=== PATIENT | female | born 1970 | race Caucasian/White ===

== ENCOUNTER 2017-06-21 23:41 | Emergency (ER) | payer MEDICARE, OTHER ==
[2017-06-22 00:06] VITALS: BP 107/49
--- NOTE | 2017-06-22 00:10 | ED Physician Documentation ---
General Adult - HISTORIAN Historian: patient, other (her regular caregiver) - HPI Stated Complaint: Dizziness and slurred speech Chief Complaint: General Adult Additional Information: Leaning to one side. This is not new, but seems to be a bit more pronounced. Her speech is said to be unchanged from her baseline. Began benztropine, 0.5 mg bid yesterday and has had 3 doses. Resident of the [facility] with Bipolar Disease, Articulation disorder, S/P repair Tetralogy of Fallot. On many psych altering/modifying meds. Symptom noted this afternoon. Caregiver thought left ankle might be a little swollen; she notes no other new symptoms. - ROS CONST: no problems - PAST HX Past History: other (see above) Allergies/Adverse Reactions: Allergies Allergy/AdvReac Type Severity Reaction Status Date / Time codeine Allergy Verified 06/21/17 23:51 Penicillins Allergy Verified 06/21/17 23:51 - SOCIAL HX Smoking History: non-smoker - FAMILY HX Family History: No - VITAL SIGNS Vital Signs: Vital Signs Temp Pulse Resp BP Pulse Ox 107/49 98 06/21/17 23:41 06/21/17 23:41 - REVIEWED ASSESSMENTS Nursing Assessment Reviewed: Yes Vitals Reviewed: Yes General Adult Physical Exam - PHYSICAL EXAM GENERAL APPEARANCE: talkative, cooperative, pleasant EENT: ENT inspection normal, pharynx normal NECK: normal inspection, supple RESPIRATORY: no resp distress, breath sounds normal CVS: reg rate & rhythm ABDOMEN: soft, normal bowel sounds, non-tender BACK: no CVA tenderness, other (no vertebral tenderness, scoliosis) SKIN: warm/dry, normal color EXTREMITIES: non-tender, no evidence of injury, no edema NEURO: CN's nml as tested, motor nml, sensation nml Discharge Clincal Impression: Medication side effect Referrals: Roberto Hartley [Primary Care Provider] - 2 Days Additional Instructions: Ask your provider to evaluate your medications. Return to the ER as needed. Condition: Good Disposition: 01 HOME, SELF-CARE Decision to Admit: NO Decision Time: 00:20
== END 2017-06-22 00:25 | disposition home or self-care (01) ==
LOC: ED 23:41
DX: T50.905A Adverse effect of unspecified drugs, medicaments and biological substances, initial encounter (principal); X58.XXXA Exposure to other specified factors, initial encounter; Y93.9 Activity, unspecified; Y99.9 Unspecified external cause status
CPT/HCPCS: 99283

== ENCOUNTER 2018-04-03 13:22 | Outpatient (CLI) | payer OTHER | END 2018-04-03 13:40 | LOC: POD 13:22 | PROVIDERS: ATTEND Podiatrist | DX: B35.1 Tinea unguium (principal); M79.674 Pain in right toe(s); M79.675 Pain in left toe(s) | CPT/HCPCS: G0463 ==

== ENCOUNTER 2018-09-15 10:26 | Emergency (ER) | payer OTHER ==
[2018-09-15] MEDS ORDERED: 0.9 % SODIUM CHLORIDE 1,000 ML IV ONE (11:43)
--- NOTE | 2018-09-15 11:49 | ED Physician Documentation ---
Fall - HISTORIAN Historian: patient, other (caregiver) - HPI Stated Complaint: frequent falls Chief Complaint: Fall Onset: just prior to arrival, yesterday Where: other (shelter) Context: lost balance, other (pt has long hx falls which-accd to records-is attention getting device) r: moderate Associated Symptoms:: no loss of consciousness Location of Pain/Injury: chest (upper w/cough--saw pcp yesterday given decongestant) Injury to Right Extremity: none Injury to Left Extremity: none Further Comments: no - ROS CONST: weakness NEURO: other (slight lethargic w/ slurred speech(long hx same)) MS/SKIN/LYMPH: denies: weakness, numbness, neck pain, back pain, ankle swelling, leg swelling EYES/ENT: none CVS/RESP: chest pain (upper central w/ respiration especially) GI/: denies: problems urinating, nausea, vomiting (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) - PAST HX Past History: other (mild mental retardation---falls---meds chg 1 week ago-) Allergies/Adverse Reactions: Allergies Allergy/AdvReac Type Severity Reaction Status Date / Time codeine Allergy Verified 09/15/18 10:44 Penicillins Allergy Verified 09/15/18 10:44 Home Medications: Ambulatory Orders Medication Instructions Recorded Acetaminophen [Tylenol Extra 500 mg PO Q4 PRN 06/22/17 Strength] Benztropine Mesylate [Cogentin] 0.5 mg PO BID 06/22/17 Carbamazepine [Carbatrol] 300 mg PO BID 06/22/17 Divalproex Sodium [Depakote ER] 750 mg PO BID 06/22/17 Fluticasone Propionate [Flon[place] 1 [place] [address]/22/17 Nasal [place]] Loratadine [Claritin] 10 mg PO 0800 06/22/17 Magnesium Hydroxide [Milk of 2,400 mg PO DAILY PRN 06/22/17 Magnesia] Sertraline HCl [Zoloft] 150 mg PO 0800 06/22/17 Ziprasidone HCl [Geodon] 40 mg PO BID 06/22/17 Zolpidem Tartrate [Ambien] 10 mg PO HS 06/22/17 clonazePAM [Klonopin] 0.5 mg PO BID 06/22/17 risperiDONE [RisperDAL] 1 mg PO BID 06/22/17 traZODone HCL [Desyrel] 300 mg PO HS 06/22/17 Clonazepam 2 mg PO HS 09/15/18 Ziprasidone HCl [Geodon] 40 mg PO BID 09/15/18 Zolpidem Tartrate [Ambien] 10 mg PO HS 09/15/18 - SOCIAL HX Smoking History: non-smoker Alcohol Use: none Drug Use: none - FAMILY HX Family History: no significant history - VITAL SIGNS Vital Signs: Vital Signs Temp Pulse Resp BP Pulse Ox 98.4 F 76 18 109/67 96 09/15/18 10:27 09/15/18 10:27 09/15/18 10:27 09/15/18 10:27 09/15/18 10:27 - REVIEWED ASSESSMENTS Nursing Assessment Reviewed: Yes Vitals Reviewed: Yes ED Results Lab/Radiology - Radiology Radiology Impressions: [facility] FALL PRECAUTIONS perhaps psyche eval - Orders Orders: ED Orders Category Date Time Status Place IV Lock 1T Care 09/15/18 10:45 Active CHEST 1VIEW [RAD] Stat Exams 09/15/18 11:10 Taken BNP [NT-proBNP] Stat Lab 09/15/18 Ordered CBC/PLATELET/DIFF Stat Lab 09/15/18 11:00 Received CMP Stat Lab 09/15/18 11:00 Received URINALYSIS Routine Lab 09/15/18 Ordered 0.9 % Sodium Chloride [Normal Saline] 1,000 ml Med 09/15/18 11:43 Discontinued IV .STK-MED Chem Sticks Med 09/15/18 10:45 Discontinued 1 each MC 1T ONE Fall Physical Exam - Physical Exam General Appearance: mild distress Head: non-tender, no swelling, no obvious injury. No: raccoon eyes, Navarrete's sign, trauma Neck: non-tender, painless ROM Eye: NANO, EOMI Resp/CVS: chest non-tender, no ecchymosis (long slow breaths coarse and fine rales rhonci), heart sounds nml Abdomen: soft, no distension, non-tender (slurred slow speech-laboratory animal caretaker says this not unusual) Neuro: oriented x3, sensation nml, motor nml, slurred speech, other (depressed). No: mood/affect nml Skin: color nml, no rash, ecchymosis. No: cyanosis, diaphoresis Back: No: CVA tenderness (R), CVA tenderness (L) Extremities: atraumatic, pelvis stable, hips non-tender, other (no pronator drift---can heel to knee to toe bilaterally) Joint: joints nml, nml ROM - [place] Coma Score Eyes Open: Spontaneous Speech: Oriented (slurredd speech lethargic as w/excess medication) Motor: Obeys Commands Discharge Clincal Impression: frequent falls, shelter reort af attentiongettingde, no appaarent sig injury Referrals: Venkat Verdugo [Primary Care Provider] - 2 Days Comments: perhaps psyche eval falkl lprecaution Condition: Fair Disposition: 04 XFER LONGTERM Decision to Admit: NO Decision Time: 22:00
--- NOTE | 2018-09-15 12:28 | Diagnostic Imaging Report ---
DANIA DEVINE [facility] [address] [facility] [address] [address] Report Submission Date: Sep 15, 2018 11:57:35 AM CURBING STONECUTTER Patient Study Name: LAMINE HERMOSILLO Date: Sep 15, 2018 11:19:14 AM CURBING STONECUTTER Modality Type: DX Gender: F Description: CHEST : 70 Institution: [facility] Physician: DANIA DEVINE HISTORY: 48-year-old female with chest pain for 2 days. COMPARISON: None available TECHNIQUE: Single portable AP view of the chest was performed. FINDINGS: There are postoperative changes of median sternotomy. There are hazy infiltrates in the right lung base, although this appearance is exaggerated by abundant overlying soft tissue. No pneumothorax or pulmonary edema. The heart is enlarged. There is probable right-sided aortic arch. The right humeral head is high-riding, consistent with significant rotator cuff tendinopathy. IMPRESSION: 1. Right basilar pneumonia. 2. Cardiomegaly and postoperative changes of the heart. 3. Probable right aortic arch. Electronically signed on Sep 15, 2018 11:57:35 AM CURBING STONECUTTER by: Tremaine DEL RIO
--- NOTE | 2018-09-15 12:50 | Diagnostic Imaging Report ---
DANIA DEVINE [facility] [address] [facility] [address] [address] Report Submission Date: Sep 15, 2018 11:57:35 AM BAG BAILER Patient Study Name: LAMINE HERMOSILLO Date: Sep 15, 2018 11:19:14 AM BAG BAILER Modality Type: DX Gender: F Description: CHEST : 70 Institution: [facility] Physician: DANIA DEVINE HISTORY: 48-year-old female with chest pain for 2 days. COMPARISON: None available TECHNIQUE: Single portable AP view of the chest was performed. FINDINGS: There are postoperative changes of median sternotomy. There are hazy infiltrates in the right lung base, although this appearance is exaggerated by abundant overlying soft tissue. No pneumothorax or pulmonary edema. The heart is enlarged. There is probable right-sided aortic arch. The right humeral head is high-riding, consistent with significant rotator cuff tendinopathy. IMPRESSION: 1. Right basilar pneumonia. 2. Cardiomegaly and postoperative changes of the heart. 3. Probable right aortic arch. Electronically signed on Sep 15, 2018 11:57:35 AM BAG BAILER by: Tremaine DEL RIO
[2018-09-15 13:58] VITALS: BP 119/63
[2018-09-15 22:52] LABS: MEAN CORPUSCULAR HEMOGLOBIN 28.4 pg (28.0-34.0); MONOCYTES % 9.2 % (0.0-11.0)
[2018-09-15 22:53] LABS: BASOPHILS % 0.3 (0.0-1.5); EOSINOPHILS % 0.8 % (0.0-6.8); NEUTROPHILS # 7.1 # k/uL (1.4-7.7); eGFR (Non-African) > 60
[2018-09-15 23:08] LABS: COLOR,URINE AMBER (YELLOW)
[2018-09-15 23:09] LABS: APPEARANCE,URINE CLOUDY (CLEAR); OCCULT BLOOD,URINE NEGATIVE (NEGATIVE)
== END 2018-09-15 13:50 ==
LOC: ED 10:26
DX: Z04.89 Encounter for examination and observation for other specified reasons (principal); R29.6 Repeated falls
CPT/HCPCS: 36415; 70450; 71045; 80053; 81002; 83880; 85025; 96365; 99283; 99285; J7030; S1016

== ENCOUNTER 2019-05-02 16:12 | Emergency (ER) | payer OTHER ==
--- NOTE | 2019-05-02 16:28 | ED Physician Documentation ---
Fall - HISTORIAN Historian: patient - HPI Stated Complaint: fall and she has pain in her right shoulder and elbwo Chief Complaint: Fall Onset: just prior to arrival Where: home Context: tripped, slipped r: mild Associated Symptoms:: no loss of consciousness Location of Pain/Injury: R shoulder, lower extremity Injury to Right Extremity: shoulder, elbow Injury to Left Extremity: foot Further Comments: yes (per caregiver she was told the pt fell and hit her right shoulder, head , elbow, and left foot. She states she had no LOC. She only complains of right shoulder pain and elbow and left foot. She has not had any meds for pain. No other complaints) - ROS CONST: no problems EYES/ENT: denies: problems with vision - PAST HX Past History: none Immunizations: UTD Allergies/Adverse Reactions: Allergies Allergy/AdvReac Type Severity Reaction Status Date / Time codeine Allergy Verified 05/02/19 16:21 Penicillins Allergy Verified 05/02/19 16:21 Home Medications: Ambulatory Orders Medication Instructions Recorded Acetaminophen [Mapap] 1 tbs PO Q4 PRN 05/02/19 Benztropine Mesylate [Cogentin] 0.5 tab PO BID PRN 05/02/19 Carbamazepine [Carbatrol] 1 tab PO BID 05/02/19 Carbamazepine [Carbatrol] 1 tab PO BID 05/02/19 Clonazepam [Klonopin] 1 tab PO HS 05/02/19 Divalproex Sodium [Depakote] 1 tab PO BID 05/02/19 Divalproex Sodium [Depakote] 1 tab PO BID 05/02/19 Fluticasone Propionate [Flonase] 2 spray INH DAILY 05/02/19 Furosemide [Lasix] 1 tab PO DAILY 05/02/19 Loratadine [Claritin] 1 tab PO DAILY 05/02/19 Medroxyprogesterone Acetate 1 ml IM Q3 05/02/19 [Depo-Provera] Risperidone [Risperdal] 1 tab PO TID 05/02/19 Sertraline HCl [Zoloft] 3 tab PO DAILY 05/02/19 Trazodone HCl [Desyrel] 2 tab PO HS 05/02/19 Ziprasidone HCl [Geodon] 1 tab PO BID 05/02/19 Zolpidem Tartrate [Ambien] 2 tab PO HS 05/02/19 clonazePAM [Klonopin] 1 tab PO BID PRN 05/02/19 - SOCIAL HX Smoking History: non-smoker Alcohol Use: none Drug Use: none - FAMILY HX Family History: none - VITAL SIGNS Vital Signs: Vital Signs Temp Pulse Resp BP Pulse Ox 119/63 09/15/18 13:50 - REVIEWED ASSESSMENTS Nursing Assessment Reviewed: Yes Vitals Reviewed: Yes Progress - Progress Progress: 1725: discussed results and plan she is agreeable DG ED Results Lab/Radiology - Radiology Radiology Impressions: SHOULDER 2 VIEWS OR MORE History: RT SHOULDER, PAIN IN RT SHOULDER AFTER FALL Findings: The osseous structures are intact without acute fracture. The joint space and alignment are normal. There is no soft tissue swelling. The imaged portion of the right hemithorax is normal. Impression: 1. No acute osseous abnormality. Electronically signed on May 02, 2019 5:14:12 PM CDT by: Adan Trejo ELBOW 3 VIEWS History: RT ELBOW, PAIN IN RT ELBOW AFTER FALL Findings: The osseous structures are intact without acute fracture. The joint space and alignment are normal. There is no soft tissue swelling. No elbow joint effusion. Impression: 1. No acute osseous abnormality. Electronically signed on May 02, 2019 5:14:41 PM CDT by: Adan Trejo FOOT 3 VIEWS OR MORE History: LEFT FOOT, PAIN IN LEFT FOOT AFTER FALL Findings: The osseous structures are intact without acute fracture. Mild hallux valgus deformity present. Otherwise, the joint space and alignment are normal. There is no soft tissue swelling. Impression: 1. No acute osseous abnormality. Electronically signed on May 02, 2019 5:15:35 PM CDT by: Adan Trejo Fall Physical Exam - Physical Exam General Appearance: no acute distress, alert Head: non-tender (small pinpoint abrasion on right forehead ), no swelling Neck: non-tender, painless ROM Eye: NANO ENT: nml external inspection Resp/CVS: chest non-tender, breath sounds nml, no resp. distress, heart sounds nml Abdomen: soft, normal bowel sounds, no distension, non-tender Rectal/Genital: nml ext.inspection Neuro: oriented x3 Skin: color nml, no rash, other (abrasion right elbow. Pain with palpation right shoulder. Pulses + FROM. Sensation + ) Extremities: atraumatic Joint: joints nml, nml ROM - [place]ovany Coma Score Eyes Open: Spontaneous Speech: Oriented Motor: Obeys Commands Discharge Clincal Impression: Fall Qualifiers: Encounter type: initial encounter Qualified Code(s): W19.XXXA - Unspecified fall, initial encounter Referrals: Mario Jimenez MD [Primary Care Provider] - 2 Days Comments: 1. Continue same meds 2. Follow up with PCP as needed in 2-4 days 3. OTC meds as directed as needed for pain 4. Ice to affected areas as needed for comfort 5. Return to ER for any increasing concerns Condition: Stable Disposition: 01 HOME, SELF-CARE Decision to Admit: NO Date of Decison to Admit: 05/02/19 Decision Time: 17:30
[2019-05-02 16:56] VITALS: BP 148/47
[2019-05-02] MEDS: IBUPROFEN 400 MG TABLET PO ONE (18:30)
--- NOTE | 2019-05-02 20:03 | Diagnostic Imaging Report ---
MARIBEL WOOD [facility] [address] [facility] [address] [place], [place]. [address] Report Submission Date: May 02, 2019 5:14:12 PM CDT Patient Study Name: LAMINE HERMOSILLO Date: May 02, 2019 4:33:15 PM CDT Modality Type: DX Gender: F Description: SHOULDER 2 VIEWS OR MORE : 70 Institution: [facility] Physician: MARIBEL WOOD SHOULDER 2 VIEWS OR MORE History: RT SHOULDER, PAIN IN RT SHOULDER AFTER FALL Findings: The osseous structures are intact without acute fracture. The joint space and alignment are normal. There is no soft tissue swelling. The imaged portion of the right hemithorax is normal. Impression: 1. No acute osseous abnormality. Electronically signed on May 02, 2019 5:14:12 PM CDT by: Adan DEL RIO
--- NOTE | 2019-05-02 20:04 | Diagnostic Imaging Report ---
MARIBEL WOOD [facility] [address] [facility] [address] [place], [place]. [address] Report Submission Date: May 02, 2019 5:14:41 PM CDT Patient Study Name: LAMINE HERMOSILLO Date: May 02, 2019 4:33:15 PM CDT Modality Type: DX Gender: F Description: ELBOW 3 VIEWS : 70 Institution: [facility] Physician: MARIBEL WOOD ELBOW 3 VIEWS History: RT ELBOW, PAIN IN RT ELBOW AFTER FALL Findings: The osseous structures are intact without acute fracture. The joint space and alignment are normal. There is no soft tissue swelling. No elbow joint effusion. Impression: 1. No acute osseous abnormality. Electronically signed on May 02, 2019 5:14:41 PM CDT by: Adan DEL RIO
--- NOTE | 2019-05-02 20:05 | Diagnostic Imaging Report ---
MARIBEL WOOD [facility] [address] [facility] [address] [place], [place]. [address] Report Submission Date: May 02, 2019 5:15:35 PM CDT Patient Study Name: LAMINE HERMOSILLO Date: May 02, 2019 4:33:15 PM CDT Modality Type: DX Gender: F Description: FOOT 3 VIEWS OR MORE : 70 Institution: [facility] Physician: MARIBEL WOOD FOOT 3 VIEWS OR MORE History: LEFT FOOT, PAIN IN LEFT FOOT AFTER FALL Findings: The osseous structures are intact without acute fracture. Mild hallux valgus deformity present. Otherwise, the joint space and alignment are normal. There is no soft tissue swelling. Impression: 1. No acute osseous abnormality. Electronically signed on May 02, 2019 5:15:35 PM CDT by: Adan DEL RIO
== END 2019-05-02 17:39 | disposition home or self-care (01) ==
LOC: ED 16:14
DX: S49.91XA Unspecified injury of right shoulder and upper arm, initial encounter (principal); W19.XXXA Unspecified fall, initial encounter; Y99.8 Other external cause status
CPT/HCPCS: 73030; 73080; 73630; 99282; 99283